=== PATIENT | female | born 1980 | race Caucasian/White ===

== ENCOUNTER → 2017-09-10 | Outpatient (CLI) | payer OTHER, MEDICAID ==
--- NOTE | 2017-09-10 13:28 | Diagnostic Imaging Report ---
INDICATION: Survey. TECHNIQUE: Multiple real-time grayscale images were obtained over the gravid uterus. COMPARISON: None. FINDINGS: Jones gestation is in transverse position with the placenta posterior and no abruption or previa. On images submitted, the head appears to be to the maternal left. Amniotic fluid volume appeared normal. No pathological finding at the anatomical survey. The measurements correlate with an age 21 weeks 1 day. IMPRESSION: Transverse-positioned jones viable IUP measuring 21 weeks 1 day with normal anatomical survey. Biometrical measurements are as follows: Biparietal 4.88 cm, age 20 weeks 6 days. Head circumference 18.16 cm, age 20 weeks 4 days. Abdominal circumference 16.12 cm, age 21 weeks 2 days. Femur length 3.57 cm, age 21 weeks 3 days. Sonographic estimate age: 21 weeks 1 days. Sonographic estimated date of delivery: 01/20/18. Estimated Weight: 404 gm (+/- 59 gm). LMP percentile: 84%. heart rate: 143 beats per minute. number: 1 of 1. Dictated by: Dictated on workstation # [id number]
== END ==
LOC: RAD 09:36
PROVIDERS: ATTEND Obstetrics & Gynecology
DX: Z36.89 Encounter for other specified antenatal screening (principal); Z3A.21 21 weeks gestation of pregnancy
CPT/HCPCS: 76805

== ENCOUNTER 2018-01-23 06:00 | Inpatient (IN) | payer OTHER, MEDICAID ==
[2018-01-23] VITALS (34 sets, daily range): BP systolic 87–180; BP diastolic 41–94
[~2018-01-23] VITALS: Ht 162.6 cm; Wt 99.3 kg
[2018-01-23] MEDS ORDERED: LACTATED RINGERS 1,000 ML IV ONE (07:14)
[2018-01-23] MEDS: LACTATED RINGERS 1,000 ML IV SCH ×2 (07:30→15:41)
[2018-01-23 08:04] LABS: HEMOGLOBIN 10.7 G/DL (11.5-16.0); MEAN PLATELET VOLUME 10.8 FL (7.4-10.4); RED BLOOD COUNT 3.61 10^6/uL (4.35-5.85); RED CELL DISTRIBUTION WIDTH 13.9 % (10.0-14.5); WHITE BLOOD COUNT 9.2 10^3/uL (4.3-11.0)
[2018-01-23] MEDS ORDERED: SUFENTA 0.6MCG/ML BUPIVA 0.125 100 ML ONE (08:17)
[2018-01-23] MEDS ORDERED: diphenhydrAMINE 50 MG/ML INJ (BENADRYL) IV PRN (09:00)
[2018-01-23] MEDS ORDERED: NALOXONE 0.4 MG/ML 1 ML (NARCAN) VIAL IV PRN (09:00)
[2018-01-23] MEDS ORDERED: EPIDURAL (SUFENTA 0.6MCG/ML BUPIVA 0.125%) 100 ML BAG EPI PRN (09:00)
[2018-01-23] MEDS ORDERED: ONDANSETRON 4 MG/2 ML (SDV) Z0FRAN IV PRN (09:00)
[2018-01-23] MEDS ORDERED: OXYTOCIN/NORMAL SALINE 0 ML IV ONE (09:30)
[2018-01-23] MEDS: D5 LR IV SOLUTION 1,000 ML IV SCH ×2 (09:30→20:28)
--- NOTE | 2018-01-23 09:59 | History & Physical-OB ---
OB - Chief Complaint & HPI Date/Time Date of Admission: Date of Admission: Jan 23, 2018 at 6:38 am Date seen by a Provider: Jan 23, 2018 Time Seen by a Provider: 09:00 Chief Complaint/History OB-Reason for Admission/Chief: Induction of Labor Hx : 6 Hx Para: 4 Expected Date of Delivery: Jan 25, 2018 Gestational Age in Weeks: 39 Gestational Age in Days: 5 Indication for induction: other ( < 40 weeks) Admission Nurse Assessment Rev: Yes History of Labs A pos Antibody neg RI RPR NR HBsAg NR HIV NR GC neg GBS neg Allergies and Home Medications Allergies Coded Allergies: Adhesive (Verified Allergy, Unknown, 05/21/07) Promethazine (Verified Allergy, Unknown, 05/21/07) Patient Home Medication List Home Medication List Reviewed: Yes OB - History Hx of Present Care: Yes Ultrasounds: Normal mid trimester US Obstetrical Complications: None Medical Complications: None Patient Past Medical History N/A Social History/Family History Recent Infectious Disease Expo: No OB - Admission Exam Physical Exam HEENT: NCAT Heart: Rhythm Normal Lungs: Clear Abdomen: Gravid Extremities: Normal Reflexes: Normal Cervical Dilatation: 5cm Effacement: 75% Station: -3 Membranes: Intact Heart Rate: 130's Accelerations: Accelerations Present Decelerations: No Decelerations Short Term Variability: Present Jail Variability: Average (6-25) Contractions on Admission: 6-10 Minutes Apart Intensity: Mild Cuadra Scoring Tool (Modified) Dilation (cm): >5cm (3) Effacement (%): 51-79% (2) Descent/Station: -2 (1) Cervix Consistency: Soft (2) Cervix Position: Anterior (2) Add 1 point for: Each previous vaginal delivery (1) Cuadra Score: 12 Labs Laboratory Tests Test 01/23/18 07:50 Range/Units White Blood Count 9.2 4.3-11.0 10^3/uL Red Blood Count 3.61 L 4.35-5.85 10^6/uL Hemoglobin 10.7 L 11.5-16.0 G/DL Hematocrit 33 L 35-52 % Mean Corpuscular Volume 91 80-99 FL Mean Corpuscular Hemoglobin 30 25-34 PG Mean Corpuscular Hemoglobin Concent 33 32-36 G/DL Red Cell Distribution Width 13.9 10.0-14.5 % Platelet Count 202 130-400 10^3/uL Mean Platelet Volume 10.8 H 7.4-10.4 FL OB - Assessment/Plan/Diagnosis Assessment Assessment: induction of labor Admission Dx 37 yo @ 39.5 weeks Previous x 1 AMA Previous successful x 3 TOLAC GBS neg Admission Status: Inpatient Order (span 2 midnights) Reason for Inpatient Admission: 37 yo @ 39.5 weeks Previous x 1 AMA Previous successful x 3 TOLAC GBS neg Plan Plan: Induction Induction Method: MACIE TURNER DO Jan 23, 2018 9:59 am
[2018-01-23] MEDS ORDERED: FLU QUADRIvalent (5+ YOA) 2018-2019 (AFLURIA) 0.5 ML IM ONE (10:15)
[2018-01-23 10:29] LABS: BILIRUBIN,URINE NEGATIVE (NEGATIVE); CLARITY,URINE SLIGHTLY CLOUDY; COLOR,URINE BROWN; GLUCOSE, URINE (UA) NEGATIVE (NEGATIVE); KETONES,URINE NEGATIVE (NEGATIVE); LEUKOCYTE ESTERASE ,URINE 2+ (NEGATIVE); NITRITE,URINE NEGATIVE (NEGATIVE); PH,URINE 7 (5-9); PROTEIN,URINE 2+ (NEGATIVE); UROBILINOGEN,URINE NORMAL (NORMAL)
[2018-01-23 10:51] LABS: BACTERIA,URINE FEW /HPF; RBC,URINE TNTC /HPF; WBC,URINE 25-50 /HPF
[2018-01-23] MEDS ORDERED: fentaNYL INJECTION 100 MCG/2 ML AMP ONE ×2 (12:50→15:12)
[2018-01-23] MEDS ORDERED: LIDOCAINE PF 2% 5 ML (XYLOCAINE) VIAL ONE ×2 (12:50→16:15)
[2018-01-23] MEDS ORDERED: BUPIVACAINE 0.25% 30 ML (SENSORCAINE) VIAL ONE ×2 (12:50→16:15)
[2018-01-23] MEDS: CATHETER FLUSH 10 ML SYR IV SCH ×2 (14:08→21:47)
[2018-01-23] MEDS ORDERED: CITRIC ACID/SOB CIT (BICITRA) 30 ML UDC ONE (14:57)
[2018-01-23] MEDS ORDERED: FAMOTIDINE 20MG/2ML IV (PEPCID) ONE (14:57)
[2018-01-23] MEDS ORDERED: METOCLOPRAMIDE INJ 10 MG/2 ML (REGLAN) ONE (14:57)
[2018-01-23] MEDS ORDERED: SUCCINYLCHOLINE INJ 100 MG/5 ML SYR ONE (15:19)
[2018-01-23] MEDS ORDERED: proPOfol 200 MG/20 ML (DIPRIVAN) VIAL IV ONE (15:19)
[2018-01-23] MEDS ORDERED: PHENYLEPHRINE 100 MCG/ML 10 ML (ANESTHESIA) SYR ONE ×2 (15:19→16:03)
[2018-01-23] MEDS ORDERED: ONDANSETRON 4 MG/2 ML (SDV) Z0FRAN ONE (15:19)
[2018-01-23] MEDS ORDERED: METHYLERGONOVINE 0.2 MG/ML (METHERGINE) AMP ONE (15:20)
[2018-01-23] MEDS ORDERED: OXYTOCIN/NORMAL SALINE 1,000 ML IV ONE (15:22)
[2018-01-23] MEDS ORDERED: ceFAZolin 1,000 MG/10 ML (ANCEF) VIAL IV ONE (15:30)
[2018-01-23] MEDS ORDERED: KETOROLAC 30 MG/ML VIAL ONE (15:49)
[2018-01-23] MEDS ORDERED: MEPERIDINE (DEMEROL) INJ 50 MG/ML IVP ONE (16:00)
[2018-01-23] MEDS ORDERED: fentaNYL INJECTION 100 MCG/2 ML AMP IVP ONE (16:00)
[2018-01-23] MEDS ORDERED: morphine INJ 10 MG/ML 1ML (SYR OR VIAL) IVP ONE (16:00)
[2018-01-23] MEDS ORDERED: ONDANSETRON 4 MG/2 ML (SDV) Z0FRAN IVP PRN ×2 (16:00→16:45)
--- NOTE | 2018-01-23 16:01 | Diagnostic Imaging Report ---
INDICATION: Postop abdomen. COMPARISON: None FINDINGS: Single supine radiographic view of the abdomen was obtained. There is radiopaque tubing projecting over the left upper abdominal quadrant which may be on the basis of indwelling gastric tube. Surgical clips are also noted within the right upper abdominal quadrant. No other unexpected radiopaque foreign bodies are seen. A few scattered loops of air distended small bowel are noted. IMPRESSION: 1. No unexpected radiopaque foreign bodies in this postsurgical patient. Dictated by: Dictated on workstation # [id number]
[2018-01-23] MEDS ORDERED: SEVOFLURANE (ULTANE) 15 ML INHAL SOLN ONE (16:05)
--- NOTE | 2018-01-23 16:43 | Discharge Inst-Women's Service ---
Discharge Inst-Women's Serv Depart Medication/Instructions New, Converted or Re-Newed RX: RX on Chart Final Diagnosis POD 2 RLTCS Acute blood loss anemia Consults/Follow Up Additional Follow Up: Yes Orders/Referrals Dr. Sagastume in 7-10 days and in 6 weeks Activity Activity: Activity as Tolerated Driving Instructions: No Driving for 1 Week NO SMOKING: NO SMOKING Nothing Inside Vagina: No Douching, No [place], No Tampons Diet Discharge Diet: No Restrictions Symptoms to Report to : Bleeding Excessive, Pain Increased, Fever Over 101 Degrees F, Vaginal Bleeding Increase, Questions/Concerns For Any Problems or Questions: Contact Your Physician Skin/Wound Care Infection Signs and Symptoms: Increased Redness, Foul Odor of Wound, Increased Drainage, Skin Itchy or Has a Rash, Increased Swelling, Temperature Above 101 F Operative Area Clean and Dry: Keep Incision Clean/Dry Stitches/[place]/Dermabond: Dermabond, Care of Stitches Bathing Instructions: MACIE Priest DO Jan 23, 2018 4:42 pm
[2018-01-23] MEDS ORDERED: HYDROmorphone 2 MG/ML VIAL (DILAUDID) IV PRN (16:45)
[2018-01-23] MEDS ORDERED: TETANUS,DIPTH,PERTUSS P/F (BOOSTRIX) 0.5 ML VIAL IM SCH (16:45)
[2018-01-23] MEDS ORDERED: ACHD5005 PO (16:45)
[2018-01-23] MEDS ORDERED: MEASLES,MUMPS,RUBELLA 1 EA INJ SC SCH (16:45)
[2018-01-23] MEDS ORDERED: IBUP-844 PO (16:45)
[2018-01-23] MEDS ORDERED: DOCU100C37 PO (16:46)
[2018-01-23] MEDS: OXYTOCIN/NORMAL SALINE 500 ML IV SCH ×2 (17:00→20:49)
[2018-01-23] MEDS: KETOROLAC 30 MG/ML VIAL IVP SCH (17:00)
[2018-01-23] MEDS: DOCUSATE SODIUM 100 MG (COLACE) CAP PO SCH (20:32)
[2018-01-23] MEDS: HYDROcodone/APAP 5 MG/325 MG (LORTAB) TAB PO PRN (20:34)
--- NOTE | 2018-01-23 21:36 | OPERATIVE REPORT ---
DATE OF SERVICE: PREOPERATIVE DIAGNOSES: 1. A 37-year-old female at 39 weeks gestation. 2. Trial of labor after . 3. intolerance of second stage labor. POSTOPERATIVE DIAGNOSES: 1. A 37-year-old female at 39 weeks gestation. 2. Trial of labor after . 3. intolerance of second stage labor. 4. Suspected large placental abruption. PROCEDURE: Repeat low transverse section. SURGEON: Roland Hagen DO ANESTHESIA: General endotracheal. ESTIMATED BLOOD LOSS: 800 mL. URINE OUTPUT: 1700 mL of lactated Ringer's solution. URINE OUTPUT 10 mL clear at the end the procedure that was slightly pink tinged. FINDINGS: A live female infant with Apgars of 2, 5 and 6 weighing 8 pounds 8 ounces. Grossly normal appearing uterus. No evidence of uterine dehiscence or rupture. Grossly normal appearing bilateral fallopian tubes and ovaries and anterior uterine placenta, which is noted to have approximately 40% to 50% of its surface with a large blood clot noted at the time of uterine incision. SPECIMEN SENT: Placenta. INDICATIONS FOR PROCEDURE: This 37-year-old female was brought in this morning for induction of labor at 39 weeks and 5 days. Her had been uncomplicated with the exception of advanced maternal age as well as the history of vaginal after section; however, she had undergone this three times prior successfully. Her first delivery was a section that was emergent. At her admission, she was very favorable. Her cervix was 5 cm dilated, she was 70% effaced and -2 station. Artificial rupture of membranes was performed with light meconium stained fluid noted and Pitocin augmentation was administered at a very conservative rate. The patient progressed and received an epidural for pain management. She progressed all the way to complete, at which point there began to be, of note, some deep variable decelerations, at which point, the nurse contacted me for evaluation. I came to evaluate the patient and the patient was found to be complete and 0 to +1 station. Due to her prior vaginal , an attempt was made to bring the 's vertex down and expedite delivery due to intolerance of labor and heart tones in the 60s to 70s. At that point with the next maternal push, I did place a Kiwi vacuum extractor at the midsagittal plane and in one attempt attempted with gentle downward traction to facilitate delivery rapidly; however, this was not occurring and the vacuum did pop-off. Therefore, I called for an emergency category 1 . The patient was urgently taken to the operating room as I discussed the indication and a suspicion for a potential abruption was discussed with the patient was noted to be bleeding. At that point, a Cruz catheter was placed in transit as well. She was taken to the operating room. The urgency of the matter did not allow for preoperative count and general anesthesia was administered due to the urgency of the encounter. OPERATIVE REPORT IN DETAIL: Once in the operating room, the patient was placed in supine position with leftward tilt, prepped and draped in normal sterile fashion. Once Anesthesia notified me that it is adequate and she is intubated, I made an incision to the previously existing scar using a knife and carried down to underlying fascia using the knife. I then extended the fascial incision using blunt traction. The rectus muscles were down the midline using blunt traction, which exposed the peritoneum, which I extended using blunt traction. I then placed the Dov ring retractor in the peritoneal incision, which offered excellent lateral sidewall retraction. I made an incision through the lower uterine segment, which was found to be distended. I dissected the vesicouterine peritoneum off the lower uterine segment using blunt traction creating a bladder flap. I then proceeded with by my myotomy until membranes were visualized. At the encounter of the membranes, there was a large blood clot that expelled through the uterine incision. I then extended the uterine incision using blunt traction laterally. The infant was found in the vertex presentation. I elevated the 's head up through the incision where the head was delivered. There was a nuchal cord reduced x1. Anterior and posterior shoulders were delivered. was then brought into the operative field with the cord was doubly clamped and cut and infant was handed off to the waiting nurses that were in attendance and pediatricians were en route. Cord blood was collected and cord gas was collected. Three-vessel cord was intact. Placenta was allowed to deliver spontaneously thereafter. There appeared to be 40% to 50% of the placental separation noted. The uterus was exteriorized and cleared of all endometrial clots and debris. I then proceeded with closing the uterine incision using 0 Vicryl suture in a running locked fashion. A second layer of imbricating 0 Monocryl was placed. Excellent hemostasis was noted after doing this. I then placed the uterus back in the pelvis, copiously irrigated the pelvis with normal saline. Once again, there was active bleeding noted from any of my dissection planes. I then placed Interceed antiadhesive over my low transverse incision to prevent postoperative adhesion formation. The peritoneum was then reapproximated using 3-0 Vicryl suture in running fashion. Rectus muscle was reapproximated using 3-0 Vicryl suture in interrupted fashion. The fascia was reapproximated using 0 Vicryl suture in running fashion. Subcutaneous tissue was reapproximated using 3-0 plain interrupted subcutaneous stitch and the skin was reapproximated using 4-0 Monocryl in a running subcuticular. Dermabond was applied to incision, sterile dressings with adhesive white tape. The patient tolerated the procedure well and was taken to the recovery area in stable condition. Lap and sponge count was not performed at the prior of the procedure, so was not performed after. A flat plate KUB was performed and there was no evidence of retained instrumentation. Two grams of Ancef were given intraoperatively for infection prophylaxis. Job ID: [id number] DocumentID: [id number] Dictated Date: 01/23/2018 17:01:09 Ticket Clerk Date: 01/23/2018 21:36:15 Dictated By: ROLAND HAGEN DO
[2018-01-23] MEDS ORDERED: CATHETER FLUSH 10 ML SYR IV SCH (22:00)
[2018-01-24 00:26] VITALS: BP 135/83
[2018-01-24] MEDS: HYDROcodone/APAP 5 MG/325 MG (LORTAB) TAB PO PRN ×4 (00:26→18:24)
[2018-01-24] MEDS: KETOROLAC 30 MG/ML VIAL IVP SCH ×3 (00:26→20:30)
[2018-01-24] MEDS: D5 LR IV SOLUTION 1,000 ML IV SCH (00:56)
[2018-01-24 03:35] VITALS: BP 116/6
[2018-01-24 06:04] LABS: BASOPHILS % (AUTO) 0 % (0-10); EOSINOPHILS % (AUTO) 0 % (0-10); HEMATOCRIT 25 % (35-52); HEMOGLOBIN 8.3 G/DL (11.5-16.0); LYMPHOCYTES # (AUTO) 1.5 X 10^3 (1.0-4.0); LYMPHOCYTES % (AUTO) 16 % (12-44); MEAN CORPUSCULAR HEMOGLOBIN 30 PG (25-34); MEAN CORPUSCULAR HGB CONC 33 G/DL (32-36); MEAN CORPUSCULAR VOLUME 91 FL (80-99); MEAN PLATELET VOLUME 10.8 FL (7.4-10.4); MONOCYTES # (AUTO) 0.8 X 10^3 (0.0-1.0); MONOCYTES % (AUTO) 8 % (0-12); NEUTROPHILS # (AUTO) 7.5 X 10^3 (1.8-7.8); NEUTROPHILS % (AUTO) 76 % (42-75); PLATELET COUNT 162 10^3/uL (130-400); RED BLOOD COUNT 2.76 10^6/uL (4.35-5.85); RED CELL DISTRIBUTION WIDTH 13.7 % (10.0-14.5); WHITE BLOOD COUNT 9.8 10^3/uL (4.3-11.0)
[2018-01-24] MEDS ORDERED: IBUPROFEN 600 MG (MOTRIN) TAB PO ONE ×2 (06:31→12:19)
[2018-01-24] MEDS: CATHETER FLUSH 10 ML SYR IV SCH (06:33)
[2018-01-24] MEDS: IBUPROFEN 600 MG (MOTRIN) TAB PO SCH ×4 (06:33→23:22)
[2018-01-24] MEDS: DOCUSATE SODIUM 100 MG (COLACE) CAP PO SCH ×2 (07:26→21:01)
--- NOTE | 2018-01-24 09:03 | Postpartum Progress Note ---
Note Note Day # 1 Subjective: Patient is without complaints. Ambulating, voiding. Tolerating a regular diet without nausea or vomiting. Normal lochia. Pain is well controlled with oral pain medications. Objective: Vital Sign - Last 24 Hours 01/23/18 01/23/18 01/23/18 01/23/18 09:20 09:35 09:50 10:05 Pulse 98 98 86 92 Resp 20 20 20 20 B/P (MAP) 97/41 (59) 97/41 (59) 130/82 (98) 126/80 (95) Pulse Ox 100 100 100 100 O2 Delivery Room Air Room Air Room Air Room Air 01/23/18 01/23/18 01/23/18 01/23/18 10:20 10:35 10:50 11:05 Pulse 90 98 85 88 Resp 20 20 20 20 B/P (MAP) 130/78 (95) 120/72 (88) 125/74 (91) 124/77 (93) Pulse Ox 100 100 100 100 O2 Delivery Room Air Room Air Room Air Room Air 01/23/18 01/23/18 01/23/18 01/23/18 11:20 11:35 11:50 12:05 Pulse 86 90 94 90 Resp 20 18 18 18 B/P (MAP) 141/78 (99) 134/84 (101) 131/88 (102) 141/82 (101) Pulse Ox 100 100 100 100 O2 Delivery Room Air Room Air Room Air Room Air 01/23/18 01/23/18 01/23/18 01/23/18 12:30 12:45 13:00 13:15 Temp 96.8 Pulse 85 90 90 87 Resp 18 18 18 18 B/P (MAP) 144/81 (102) 180/89 (119) 180/89 (119) 133/83 (100) Pulse Ox 100 100 100 98 O2 Delivery Room Air Room Air Room Air Room Air 01/23/18 01/23/18 01/23/18 01/23/18 13:30 13:45 14:00 14:15 Pulse 91 80 77 74 Resp 18 18 18 18 B/P (MAP) 131/72 (91) 126/76 (93) 124/74 (91) 123/80 (94) Pulse Ox 98 98 99 99 O2 Delivery Room Air Room Air Room Air Room Air 01/23/18 01/23/1801/23/18 01/23/18 14:30 14:45 14:51 17:05 Temp 97.4 Pulse 82 89 101 Resp 18 18 20 B/P (MAP) 129/82 (98) 87/49 (62) Pulse Ox 99 100 100 O2 Delivery Room Air Room Air Non Rebreather Room Air 01/23/18 01/23/18 01/24/18 01/24/18 17:08 20:34 00:26 03:35 Temp 99.1 98.8 98.8 Pulse 111 94 100 Resp 20 18 18 B/P (MAP) 97/65 (76) 128/77 (94) 135/83 (100) 116/6 (42) Pulse Ox 100 96 97 O2 Delivery Room Air Room Air Room Air Room Air Intake and Output 01/23/18 01/23/18 01/24/18 15:00 23:00 07:00 Intake Total 1740 ml 1400 ml Output Total 310 ml 650 ml Balance 1430 ml 750 ml Physical Exam: General - Alert and oriented, no apparent distress Abdomen - Soft, appropriately tender to palpation, non-distended, fundus firm at umbilicus Extremities - no edema, negative Connie's bilaterally Incision- c/d/i Assessment: POD 1 Emergency RLTCS Acute blood loss anemia Placental abruption Plan: Routine care. Encourage breast feeding. Encourage ambulation. Ferrous sulfate supplementation. Plan for discharge tomorrow/or Saturday Vitals - Labs Vital Signs - I&O Vital Signs Date Time Temp Pulse Resp B/P (MAP) Pulse Ox O2 Delivery O2 Flow Rate FiO2 01/24/18 03:35 98.8 100 18 116/6 (42) 97 Room Air 01/24/18 00:26 98.8 94 18 135/83 (100) 96 Room Air 01/23/18 20:34 99.1 111 20 128/77 (94) 100 Room Air 01/23/18 17:08 97/65 (76) Room Air 01/23/18 17:05 97.4 101 20 87/49 (62) 100 Room Air 01/23/18 14:51 Non Rebreather 01/23/18 14:45 89 18 100 Room Air 01/23/18 14:30 82 18 129/82 (98) 99 Room Air 01/23/18 14:15 74 18 123/80 (94) 99 Room Air 01/23/18 14:00 77 18 124/74 (91) 99 Room Air 01/23/18 13:45 80 18 126/76 (93) 98 Room Air 01/23/18 13:30 91 18 131/72 (91) 98 Room Air 01/23/18 13:15 87 18 133/83 (100) 98 Room Air 01/23/18 13:00 90 18 180/89 (119) 100 Room Air 01/23/18 12:45 90 18 180/89 (119) 100 Room Air 01/23/18 12:30 96.8 85 18 144/81 (102) 100 Room Air 01/23/18 12:05 90 18 141/82 (101) 100 Room Air 01/23/18 11:50 94 18 131/88 (102) 100 Room Air 01/23/18 11:35 90 18 134/84 (101) 100 Room Air 01/23/18 11:20 86 20 141/78 (99) 100 Room Air 01/23/18 11:05 88 20 124/77 (93) 100 Room Air 01/23/18 10:50 85 20 125/74 (91) 100 Room Air 01/23/18 10:35 98 20 120/72 (88) 100 Room Air 01/23/18 10:20 90 20 130/78 (95) 100 Room Air 01/23/18 10:05 92 20 126/80 (95) 100 Room Air 01/23/18 09:50 86 20 130/82 (98) 100 Room Air 01/23/18 09:35 98 20 97/41 (59) 100 Room Air 01/23/18 09:20 98 20 97/41 (59) 100 Room Air I & O 01/24/18 07:00 Intake Total 3140 ml Output Total 960 ml Balance 2180 ml Labs Laboratory Tests 01/23/18 09:30: Urine Color BROWNH, Urine Clarity SLIGHTLY CLOUDY, Urine pH 7, Urine Specific [place] 1.010L, Urine Protein 2+H, Urine Glucose (UA) NEGATIVE, Urine Ketones NEGATIVE, Urine Nitrite NEGATIVE, Urine Bilirubin NEGATIVE, Urine Urobilinogen NORMAL, Urine Leukocyte Esterase 2+H, Urine RBC (Auto) 5+H, Urine RBC TNTCH, Urine WBC 25-50H, Urine Squamous Epithelial Cells 10-25H, Urine Renal Epithelial Cells NONE, Urine Crystals NONE, Urine Bacteria FEWH, Urine Casts NONE, Urine Mucus NEGATIVE, Urine Culture Indicated YES 01/24/18 05:50: White Blood Count 9.8, Red Blood Count 2.76L, Hemoglobin 8.3#L, Hematocrit 25L, Mean Corpuscular Volume 91, Mean Corpuscular Hemoglobin 30, Mean Corpuscular Hemoglobin Concent 33, Red Cell Distribution Width 13.7, Platelet Count 162, Mean Platelet Volume 10.8H, Neutrophils (%) (Auto) 76H, Lymphocytes (%) (Auto) 16, Monocytes (%) (Auto) 8, Eosinophils (%) (Auto) 0, Basophils (%) (Auto) 0, Neutrophils # (Auto) 7.5, Lymphocytes # (Auto) 1.5, Monocytes # (Auto) 0.8, Eosinophils # (Auto) 0.0, Basophils # (Auto) 0.0 MACIE HAGEN DO Jan 24, 2018 09:03
[2018-01-24 11:08] VITALS: BP 136/67
--- NOTE | 2018-01-24 14:11 | Anesthesia-General Post-Op ---
General Patient Condition Mental Status/LOC: Same as Preop Cardiovascular: Satisfactory Nausea/Vomiting: Absent Respiratory: Satisfactory Pain: Controlled Complications: Absent Post Op Complications Complications None Follow Up Care/Instructions Patient Instructions None needed. Anesthesia/Patient Condition Patient Condition Patient is doing well, no complaints, stable vital signs, no apparent adverse anesthesia problems. No complications reported per nursing. BRINDA ONEILL CRNA Jan 24, 2018 14:11
--- NOTE | 2018-01-24 14:12 | Anesthesia-Regional Post-Op ---
Regional Patient Condition Mental Status: Alert, Oriented x3 Circulation: Same as Pre-Op Headache: Absent Sensation: Full Recovery Motor Block: Absent Post Op Complications Complications None Follow Up Care/Instructions Patient Instructions None needed. Anesthesia/Patient Condition Patient is doing well, no complaints, stable vital signs, no apparent adverse anesthesia problems. No complications reported per nursing. BRINDA ONEILL CRNA Jan 24, 2018 14:12
[2018-01-24 16:00] VITALS: BP 140/83
[2018-01-24 21:00] VITALS: BP 133/77
[2018-01-25 02:35] VITALS: BP 139/82
[2018-01-25] MEDS: HYDROcodone/APAP 5 MG/325 MG (LORTAB) TAB PO PRN ×2 (05:54→12:44)
[2018-01-25] MEDS: IBUPROFEN 600 MG (MOTRIN) TAB PO SCH ×2 (05:54→12:44)
--- NOTE | 2018-01-25 09:18 | Postpartum Progress Note ---
Note Note Day # 2 Subjective: Patient is without complaints. Ambulating, voiding. Tolerating a regular diet without nausea or vomiting. Normal lochia. Pain is well controlled with oral pain medications. Objective: Vital Signs 01/25/18 02:35 Temp 98.1 Pulse 101 Resp 18 B/P (MAP) 139/82 (101) Pulse Ox 98 O2 Delivery Room Air Physical Exam: General - Alert and oriented, no apparent distress Abdomen - Soft, appropriately tender to palpation, non-distended, fundus firm at umbilicus Extremities - no edema, negative Connie's bilaterally Incision- c/d/i Assessment: POD 1 Emergency RLTCS Acute blood loss anemia Placental abruption Plan: Routine care. Encourage breast feeding. Encourage ambulation. Ferrous sulfate supplementation. Plan for discharge today Vitals - Labs Vital Signs - I&O Vital Signs Date Time Temp Pulse Resp B/P (MAP) Pulse Ox O2 Delivery O2 Flow Rate FiO2 01/25/18 02:35 98.1 101 18 139/82 (101) 98 Room Air 01/24/18 21:00 98.7 105 20 133/77 (95) 97 Room Air 01/24/18 16:00 97.0 117 20 140/83 (102) 97 Room Air 01/24/18 11:08 98.9 100 18 136/67 (90) 97 Room Air I & O 01/25/18 07:00 Intake Total 800 ml Output Total 1200 ml Balance -400 ml Labs Microbiology 01/23/18 Urine Culture - Final, Complete See Comments MACIE HAGEN DO Jan 25, 2018 09:18
[2018-01-25] MEDS: DOCUSATE SODIUM 100 MG (COLACE) CAP PO SCH (09:57)
[2018-01-25 09:59] VITALS: BP 135/84
== END 2018-01-25 14:55 | disposition home or self-care (01) | DRG 786 ==
LOC: LDRP 06:38
PROVIDERS: ADMIT Obstetrics & Gynecology; ATTEND Obstetrics & Gynecology
PROC: 10907ZC Drainage of Amniotic Fluid, Therapeutic from Products of Conception, Via Natural or Artificial Opening (ICD-10-PCS; 2018-01-23)
PROC: 10D00Z1 Extraction of Products of Conception, Low, Open Approach (ICD-10-PCS; principal; 2018-01-23 15:00)
DX: O34.211 Maternal care for low transverse scar from previous cesarean delivery (principal); O76 Abnormality in fetal heart rate and rhythm complicating labor and delivery; O45.93 Premature separation of placenta, unspecified, third trimester; O90.81 Anemia of the puerperium; D62 Acute posthemorrhagic anemia; O66.40 Failed trial of labor, unspecified; O22.8X3 Other venous complications in pregnancy, third trimester; O69.81X0 Labor and delivery complicated by cord around neck, without compression, not applicable or unspecified; O77.0 Labor and delivery complicated by meconium in amniotic fluid; Z3A.39 39 weeks gestation of pregnancy; Z37.0 Single live birth
CPT/HCPCS: 36415; 74018; 81000; 85025; 85027; 86850; 86900; 86901; 87088; 88307; 94664

== ENCOUNTER → 2020-03-29 | Outpatient (CLI) | payer MEDICAID, OTHER ==
[~2020-03-29] MED LIST: ACHD5005 PO; DOCU100C37 PO; IBUP-844 PO
--- NOTE | 2020-03-29 11:43 | Diagnostic Imaging Report ---
INDICATION: Routine screening. COMPARISON: No prior mammograms are available for comparison. This is a baseline study. FINDINGS: 2D and 3D bilateral screening mammography was performed with CAD. FINDINGS: Scattered fibroglandular densities are identified bilaterally. No mass or malignant appearing microcalcifications are seen. The axillae are unremarkable. IMPRESSION: No mammographic features suspicious for malignancy are identified. ACR BI-RADS Category 1: Negative. Result letter will be mailed to the patient. Note: At least 10% of breast cancer is not imaged by mammography. Dictated by: Dictated on workstation # [id number]
--- NOTE | 2020-03-29 11:47 | Diagnostic Imaging Report ---
PROCEDURE: Pelvic comp/transvaginal sonogram. TECHNIQUE: Complete transabdominal and transvaginal pelvic ultrasound was performed. In addition, limited pelvic Doppler was performed. INDICATION: Heavy bleeding. The uterus is anteverted measuring 9.4 x 5.6 x 6.3 cm. Endometrium is 12 mm in thickness. There is a fibroid in the anterior fundus to the left measuring approximately 3 cm in size. Slightly echogenic lesion in the posterior uterus measures 1.3 x 1.4 cm, likely fibroid. Right ovary measures 3.5 x 2.4 x 2.4 cm and contains a partially collapsed cyst measuring 15 mm. There are follicles in the right ovary. There is blood flow to the right ovary. Left ovary was not visualized. No free fluid is seen. IMPRESSION: 1. Fibroid uterus. 2. Collapsed right ovarian cyst. The study is otherwise unremarkable. Dictated by: Dictated on workstation # [id number]
== END ==
LOC: RAD 10:01
PROVIDERS: ATTEND Obstetrics & Gynecology
DX: Z12.31 Encounter for screening mammogram for malignant neoplasm of breast (principal); N92.0 Excessive and frequent menstruation with regular cycle; N83.291 Other ovarian cyst, right side; D25.9 Leiomyoma of uterus, unspecified
CPT/HCPCS: 76830; 76856; 77063; 77067

== ENCOUNTER → 2020-09-28 | Outpatient (CLI) | payer OTHER ==
[~2020-09-28] MED LIST changes: +KETO10TA PO; +LEVO100T7 PO; +NITR-65 PO; +PHEN-640 PO; +TMSL.4C PO; +bcp PO
--- NOTE | 2020-09-28 16:07 | Diagnostic Imaging Report ---
INDICATION: Nephrolithiasis. EXAMINATION: KUB at 3:57 p.m. FINDINGS: There is a 4 mm calcification projecting over the right renal pelvis. There is a large amount of stool in the ascending colon. Bowel gas pattern is normal. Gallbladder is surgically absent. IMPRESSION: Right nephrolithiasis. Dictated by: Dictated on workstation # [id number]
== END ==
LOC: RAD
PROVIDERS: ATTEND Urology
DX: N20.0 Calculus of kidney (principal)
CPT/HCPCS: 74018

== ENCOUNTER 2020-09-29 10:03 | Outpatient (CLI) | payer OTHER ==
[~2020-09-29] VITALS: Ht 162.6 cm; Wt 97.3 kg
[~2020-09-29 10:03] MED LIST changes: -KETO10TA PO; -LEVO100T7 PO; -NITR-65 PO; -PHEN-640 PO; -TMSL.4C PO; -bcp PO
[2020-09-29] MEDS ORDERED: LEVO100T7 PO ×2 (10:40)
[2020-09-29] MEDS ORDERED: bcp PO ×2 (10:40)
[2020-09-30] MEDS ORDERED: NITR-65 PO ×2 (08:23)
[2020-09-30] MEDS ORDERED: PHEN-640 PO ×2 (08:23)
[2020-09-30] MEDS ORDERED: KETO10TA PO ×2 (08:23)
[2020-09-30] MEDS ORDERED: TMSL.4C PO ×2 (08:23)
== END 2020-09-29 10:43 | disposition home or self-care (01) ==
LOC: PREOP 10:03
PROVIDERS: ATTEND Urology
DX: Z01.818 Encounter for other preprocedural examination (principal)

== ENCOUNTER 2020-09-30 06:20 | Day surgery (SDC) | payer OTHER ==
[2020-09-30] VITALS (11 sets, daily range): BP systolic 104–150; BP diastolic 65–91
[~2020-09-30] VITALS: Ht 162.6 cm; Wt 97.3 kg
[~2020-09-30 06:20] MED LIST changes: +LEVO100T7 PO; +bcp PO
[2020-09-30] MEDS ORDERED: LACTATED RINGERS 1,000 ML IV PRN (06:45)
[2020-09-30] MEDS ORDERED: cefTRIAXone 1,000 MG in WATER (STERILE) FOR INJECTION 10 ML IV ONE (06:45)
[2020-09-30] MEDS ORDERED: fentaNYL INJ 100 MCG/2 ML AMP ONE ×2 (06:53→07:06)
[2020-09-30] MEDS ORDERED: ONDANSETRON 4 MG/2 ML (SDV) Z0FRAN ONE (07:06)
[2020-09-30] MEDS ORDERED: LIDOCAINE PF 2% 5 ML (XYLOCAINE) VIAL ONE (07:06)
[2020-09-30] MEDS ORDERED: MIDAZOLAM 2 MG/2 ML (VERSED) VIAL ONE (07:06)
[2020-09-30] MEDS ORDERED: SUCCINYLCHOLINE INJ 100 MG/5 ML SYR/VIAL ONE (07:06)
[2020-09-30] MEDS ORDERED: proPOfol 200 MG/20 ML (DIPRIVAN) VIAL IV ONE (07:06)
[2020-09-30] MEDS ORDERED: fentaNYL INJ 100 MCG/2 ML AMP IV ONE (07:15)
--- NOTE | 2020-09-30 07:23 | Progress Note-Pre Operative ---
Pre-Operative Progress Note H&P Reviewed The H&P was reviewed, patient examined and no changes noted. Date Seen by Provider: Sep 30, 2020 Time Seen by Provider: 07:23 Date H&P Reviewed: Sep 30, 2020 Time H&P Reviewed: 07:23 Pre-Operative Diagnosis: RT PROXIMAL URETERAL STONE CAROLYNN REBOLLAR MD Sep 30, 2020 07:23
--- NOTE | 2020-09-30 07:26 | Diagnostic Imaging Report ---
INDICATION: Urinary tract calculus Supine image of the abdomen is obtained with comparison made study of 09/28/2020. There is moderate to large amount of stool involving the right colon. This does limit evaluation however there is an approximately 0.5 cm calculus projecting over the right abdomen at the L3-L4 level which may reside within the proximal right ureter. No other pathologic abdominal calcification is seen. IMPRESSION: Proximal 0.5 cm calculus projects over the right abdomen and may reside within the proximal right ureter. Dictated by: Dictated on workstation # [id number]
--- NOTE | 2020-09-30 07:27 | Progress Note-Post Operative ---
Post-Operative Progess Note Surgeon (s)/Dumper Bailer Operator (s) Surgeon CAROLYNN REBOLLAR MD Dumper Bailer Operator: NONE Pre-Operative Diagnosis RT PROXIMAL URETERAL STONE Post-Operative Diagnosis SAME Procedure & Operative Findings Date of Procedure 09/30/20 Procedure Performed/Findings CYSTOSCOPY, RT URETERAL STONE MANIPULATION AND INSERTION OF STENT Anesthesia Type GENERAL Estimated Blood Loss Estimated blood loss (mL): NONE Specimens/Packing Specimens Removed NONE Packing: NONE CAROLYNN REBOLLAR MD Sep 30, 2020 07:26
[2020-09-30] MEDS ORDERED: SEVOFLURANE (ULTANE) 15 ML INHAL SOLN ONE (07:49)
--- NOTE | 2020-09-30 07:56 | Discharge Inst-Urology ---
Discharge Inst-Urology Reconcile Patient Problems Problems Reviewed?: Yes Final Diagnosis RT PROXIMAL URETERAL STONE Patient Instructions/Follow Up Plan/Assessment/Instructions Please make appointment to been seen in office Tuesday 10/10, KUB prior to it KUB on way home. Increase oral fluids for 48 hours and then as needed. Diet and Activity as tolerated. If questions or concerns contact your physician Or seek help at emergency department. CAROLYNN REBOLLAR MD Sep 30, 2020 07:56
--- NOTE | 2020-09-30 08:03 | Anesthesia-General Post-Op ---
General Patient Condition Mental Status/LOC: Same as Preop Cardiovascular: Satisfactory Nausea/Vomiting: Absent Respiratory: Satisfactory Pain: Controlled Complications: Absent Post Op Complications Complications None Follow Up Care/Instructions Patient Instructions None needed. Anesthesia/Patient Condition Patient Condition Patient is doing well, no complaints, stable vital signs, no apparent adverse anesthesia problems. No complications reported per nursing. BRINDA ONEILL CRNA Sep 30, 2020 08:03
[2020-09-30] MEDS ORDERED: morphine INJ 10 MG/ML 1ML (SYR OR VIAL) IVP ONE (08:15)
[2020-09-30] MEDS ORDERED: ONDANSETRON 4 MG/2 ML (SDV) Z0FRAN IVP PRN (08:15)
[2020-09-30] MEDS ORDERED: MEPERIDINE (DEMEROL) INJ 50 MG/ML IVP ONE (08:15)
[2020-09-30] MEDS ORDERED: TMSL.4C PO ×2 (08:23)
[2020-09-30] MEDS ORDERED: NITR-65 PO ×2 (08:23)
[2020-09-30] MEDS ORDERED: PHEN-640 PO ×2 (08:23)
[2020-09-30] MEDS ORDERED: KETO10TA PO ×2 (08:23)
--- NOTE | 2020-09-30 08:27 | OPERATIVE REPORT ---
DATE OF SERVICE: 09/30/2020 PREOPERATIVE DIAGNOSIS: Right proximal ureteral stone. POSTOPERATIVE DIAGNOSIS: Right proximal ureteral stone. OPERATION PERFORMED: Cystoscopy, right ureteral stone manipulation and insertion of right double-J stent. SURGEON: Helio Rebollar MD ANESTHESIA: General. COMPLICATIONS: None. DESCRIPTION OF PROCEDURE: Under satisfactory general anesthesia, the patient in lithotomy position, genitalia were prepped and draped in the usual sterile fashion. Cystoscope was introduced under vision, observed was a 3+ cystocele. The bladder was essentially normal except for absent efflux on the right side. Using the foroblique lens, passed a 6-Czech ureteral catheter to the level of the stone. I manipulated it and pushed it back into the kidney. I removed the ureteral catheter. There was a lot of junk and bloody material and cloudy material coming out from the ureteral orifice. I went ahead and passed a 6-Czech [address] the way up to the right renal pelvis guided fluoroscopically, removed the guidewire, the stent was seen draining nicely proximally fluoroscopically and distally endoscopically and the stone was seen inside the curve of the proximal J of the stent. Bladder was evacuated and the cystoscope was removed. The patient tolerated the procedure and anesthesia well and was sent to recovery room in stable condition. PLAN: We will see the patient back in the office on Saturday, the . We will get a KUB and plan to do ESWL on the and possible removal of stent. Job ID: [id number] DocumentID: [id number] Dictated Date: 09/30/2020 08:01:30 [employer] Crane Operator Date: 09/30/2020 08:26:57 Dictated By: HELIO REBOLLAR MD
[2020-09-30] MEDS ORDERED: PHENAZOPYRIDINE 100 MG (PYRIDIUM) TABLET PO ONE (09:30)
== END 2020-09-30 10:15 | disposition home or self-care (01) ==
LOC: SDC 06:20
PROVIDERS: ATTEND Urology
DX: N20.1 Calculus of ureter (principal); K21.9 Gastro-esophageal reflux disease without esophagitis; F32.9 Major depressive disorder, single episode, unspecified; M79.7 Fibromyalgia; E03.9 Hypothyroidism, unspecified; Z79.1 Long term (current) use of non-steroidal anti-inflammatories (NSAID); Z79.899 Other long term (current) drug therapy; Z79.891 Long term (current) use of opiate analgesic; Z79.890 Hormone replacement therapy; Z87.891 Personal history of nicotine dependence
CPT/HCPCS: 52330; 52332; 74018; 76000; 84703; 87081; C2625

== ENCOUNTER 2020-10-04 05:47 | Outpatient (CLI) | payer OTHER ==
[~2020-10-04 05:47] MED LIST changes: +KETO10TA PO; +NITR-65 PO; +PHEN-640 PO; +TMSL.4C PO
[2020-10-11] MEDS ORDERED: FAMO20TA3 PO (07:42)
[2020-10-11] MEDS ORDERED: KETO10TA PO ×2 (07:42→08:50)
[2020-10-11] MEDS ORDERED: CETI10TA17 PO (07:42)
[2020-10-11] MEDS ORDERED: NITR-65 PO (08:50)
[2020-10-11] MEDS ORDERED: TMSL.4C PO (08:50)
== END 2020-10-10 15:10 | disposition home or self-care (01) ==
LOC: PREOP 05:47
PROVIDERS: ATTEND Urology
DX: Z01.818 Encounter for other preprocedural examination (principal)

== ENCOUNTER → 2020-10-10 | Outpatient (CLI) | payer OTHER ==
[~2020-10-10] MED LIST changes: +CETI10TA17 PO; +FAMO20TA3 PO
--- NOTE | 2020-10-10 13:53 | Diagnostic Imaging Report ---
INDICATION: Status post right-sided ESWL. COMPARISON: 09/30/2020 FINDINGS: Single frontal radiographic view of the abdomen was obtained and demonstrates interval placement of right-sided double-J ureteral stent. Patency of the stent cannot be assessed. Also again identified is a 7 mm calculus projecting over the inferior pole of the right renal shadow. No other unexpected extraosseous calcifications or radiopaque foreign bodies are seen. Small bowel loops are nondistended. There has been significant interval improvement in colonic stool burden. Small amount of residual colonic stool persists. There is no large collection of free intraperitoneal air. Osseous structures show no gross acute abnormalities. IMPRESSION: 1. Redemonstration of right renal calculus. 2. Interval placement of right-sided double-J ureteral stent. 3. Interval improved colonic stool burden. Dictated by: Dictated on workstation # [id number]
== END ==
LOC: RAD 13:10
PROVIDERS: ATTEND Urology
DX: N20.1 Calculus of ureter (principal); Z96.0 Presence of urogenital implants
CPT/HCPCS: 74018

== ENCOUNTER 2020-10-11 06:00 | Day surgery (SDC) | payer OTHER ==
[~2020-10-11] VITALS: Ht 162 cm; Wt 97.3 kg
[2020-10-11] VITALS (8 sets, daily range): BP systolic 118–138; BP diastolic 79–97
[~2020-10-11 06:00] MED LIST changes: -CETI10TA17 PO; -FAMO20TA3 PO
[2020-10-11] MEDS ORDERED: LACTATED RINGERS 1,000 ML IV PRN (06:15)
[2020-10-11] MEDS ORDERED: cefTRIAXone 1,000 MG in WATER (STERILE) FOR INJECTION 10 ML IV ONE (06:15)
[2020-10-11] MEDS ORDERED: MIDAZOLAM 2 MG/2 ML (VERSED) VIAL ONE (06:56)
[2020-10-11] MEDS ORDERED: proPOfol 200 MG/20 ML (DIPRIVAN) VIAL IV ONE (06:56)
[2020-10-11] MEDS ORDERED: fentaNYL INJ 100 MCG/2 ML AMP ONE (06:56)
[2020-10-11] MEDS ORDERED: LIDOCAINE PF 2% 5 ML (XYLOCAINE) VIAL ONE (06:56)
[2020-10-11] MEDS ORDERED: ONDANSETRON 4 MG/2 ML (SDV) Z0FRAN ONE (06:56)
--- NOTE | 2020-10-11 07:01 | Progress Note-Pre Operative ---
Pre-Operative Progress Note H&P Reviewed The H&P was reviewed, patient examined and no changes noted. Date Seen by Provider: Oct 11, 2020 Time Seen by Provider: 07:01 Date H&P Reviewed: Oct 11, 2020 Time H&P Reviewed: 07:01 Pre-Operative Diagnosis: RT RENAL STONE CAROLYNN REBOLLAR MD Oct 11, 2020 07:01
[2020-10-11] MEDS ORDERED: ROCURONIUM 10 MG/ML 5 ML SYRINGE IV ONE (07:04)
--- NOTE | 2020-10-11 07:08 | Progress Note-Post Operative ---
Post-Operative Progess Note Surgeon (s)/Field Marketing Lead (s) Surgeon CAROLYNN REBOLLAR MD Field Marketing Lead: NONE Pre-Operative Diagnosis RT RENAL STONE Post-Operative Diagnosis SAME Procedure & Operative Findings Date of Procedure 10/11/20 Procedure Performed/Findings RT ESWL Anesthesia Type GENERAL Estimated Blood Loss Estimated blood loss (mL): NONE Specimens/Packing Specimens Removed NONE Packing: NONE CAROLYNN REBOLLAR MD Oct 11, 2020 07:08
--- NOTE | 2020-10-11 07:09 | Discharge Inst-Urology ---
Discharge Inst-Urology Reconcile Patient Problems Problems Reviewed?: Yes Final Diagnosis RT RENAL STONE Patient Instructions/Follow Up Plan/Assessment/Instructions Please make appointment to been seen in office in 1 week, POSSIBLE CYSTO AND REMOVAL OF STENT (please let office know that) KUB prior to it KUB on way home Post ESWL instructions Increase oral fluids for 48 hours and then as needed. Diet and Activity as tolerated. If questions or concerns contact your physician Or seek help at emergency department. CAROLYNN REBOLLAR MD Oct 11, 2020 07:09
[2020-10-11] MEDS ORDERED: morphine INJ 10 MG/ML 1ML (SYR OR VIAL) IVP ONE (07:30)
[2020-10-11] MEDS ORDERED: ONDANSETRON 4 MG/2 ML (SDV) Z0FRAN IVP PRN (07:30)
--- NOTE | 2020-10-11 07:34 | Diagnostic Imaging Report ---
Indication: Nephrolithiasis Supine image of the abdomen is obtained with comparison made to study of 10/10/2020. There is stable overall appearance of 0.7 cm calculus in the lower pole right kidney. Right double-J nephroureteral stent is in stable position. Surgical clips are seen in the right upper quadrant likely related to cholecystectomy. Otherwise there is no evidence of bowel obstruction or other adverse change. IMPRESSION: Stable KUB with 0.7 cm stone projecting over the lower pole the right kidney. Dictated by: Dictated on workstation # [id number]
[2020-10-11] MEDS ORDERED: KETO10TA PO ×2 (07:42→08:50)
[2020-10-11] MEDS ORDERED: FAMO20TA3 PO (07:42)
[2020-10-11] MEDS ORDERED: CETI10TA17 PO (07:42)
[2020-10-11] MEDS ORDERED: FUROSEMIDE 40 MG/4 ML INJ (LASIX) ONE (08:28)
[2020-10-11] MEDS ORDERED: KETOROLAC 30 MG/ML VIAL ONE (08:28)
[2020-10-11] MEDS ORDERED: SEVOFLURANE (ULTANE) 15 ML INHAL SOLN ONE (08:32)
[2020-10-11] MEDS ORDERED: NITR-65 PO (08:50)
[2020-10-11] MEDS ORDERED: TMSL.4C PO (08:50)
--- NOTE | 2020-10-11 10:40 | Diagnostic Imaging Report ---
INDICATION: Stent placement, kidney stone COMPARISON: None FINDINGS: A single view of the abdomen demonstrates stent in the right renal collecting system. Calcifications are seen near the tip of the superior stent. IMPRESSION: Stent placement right renal collecting system. Dictated by: Dictated on workstation # [id number]
--- NOTE | 2020-10-11 12:40 | OPERATIVE REPORT ---
DATE OF SERVICE: 10/11/2020 PREOPERATIVE DIAGNOSIS: Right renal stone. POSTOPERATIVE DIAGNOSIS: Right renal stone. OPERATION PERFORMED: Right ESWL. SURGEON: Helio Rebollar MD ANESTHESIA: General. COMPLICATIONS: None: DESCRIPTION OF THE PROCEDURE: Under satisfactory general anesthesia, the patient laid supine on the ESWL table, the right renal stone was localized. Shocks were delivered at kV of 6. Total of 3000 shocks completely fragmented the stone. The patient received 30 mg of Toradol and 40 mg of Lasix at the end of the procedure. She tolerated the procedure and anesthesia well and was sent to recovery room in stable condition. Job ID: [id number] DocumentID: [id number] Dictated Date: 10/11/2020 08:29:18 [employer] Packer Date: 10/11/2020 12:39:11 Dictated By: HELIO REBOLLAR MD
--- NOTE | 2020-10-11 14:02 | Anesthesia-General Post-Op ---
General Patient Condition Mental Status/LOC: Same as Preop Cardiovascular: Satisfactory Nausea/Vomiting: Absent Respiratory: Satisfactory Pain: Controlled Complications: Absent Post Op Complications Complications None Follow Up Care/Instructions Patient Instructions None needed. Anesthesia/Patient Condition Patient Condition Patient is doing well, no complaints, stable vital signs, no apparent adverse anesthesia problems. No complications reported per nursing. D/C home per [facility] Criteria: Yes TOMMY MAHAJAN CRNA Oct 11, 2020 14:02
== END 2020-10-11 10:20 | disposition home or self-care (01) ==
LOC: SDC 06:00
PROVIDERS: ATTEND Urology
DX: N20.0 Calculus of kidney (principal); G43.909 Migraine, unspecified, not intractable, without status migrainosus; E03.9 Hypothyroidism, unspecified; Z79.899 Other long term (current) drug therapy; Z79.890 Hormone replacement therapy
CPT/HCPCS: 74018; 84703; 87081

== ENCOUNTER → 2020-10-18 | Outpatient (CLI) | payer OTHER ==
[~2020-10-18] MED LIST changes: +CETI10TA17 PO; +FAMO20TA3 PO
--- NOTE | 2020-10-18 15:34 | Diagnostic Imaging Report ---
INDICATION: Right ureteral stone. TIME OF EXAM: 3:04 PM. COMPARISON: Correlation is made with the prior radiograph from 10/11/2020. FINDINGS: The right-sided nephroureteral stent remains in place. Calculi overlie the lower pole of the right kidney. No definite calculus along the course of the ureteral stent is identified. The bowel gas pattern is unremarkable. IMPRESSION: Stable KUB since the examination of one week earlier. Dictated by: Dictated on workstation # [id number]
== END ==
LOC: RAD 14:28
PROVIDERS: ATTEND Urology
DX: N20.1 Calculus of ureter (principal)
CPT/HCPCS: 74018

== ENCOUNTER → 2021-04-12 | Outpatient (CLI) | payer OTHER ==
--- NOTE | 2021-04-12 12:44 | Diagnostic Imaging Report ---
Indication: Routine screening. Comparison is made with prior mammogram from 03/29/2020. 2-D and 3-D bilateral screening mammography was performed with CAD. Scattered fibroglandular densities are identified bilaterally. The parenchymal pattern is stable. No mass or malignant-appearing microcalcifications are seen. Axillae are unremarkable. IMPRESSION: BI-RADS Category 1 No mammographic features suspicious for malignancy are identified. ACR BI-RADS Category 1: Negative. Result letter will be mailed to the patient. Note: At least 10% of breast cancer is not imaged by mammography. Dictated by: Dictated on workstation # [id number]
== END ==
LOC: RAD 10:13
PROVIDERS: ATTEND Obstetrics & Gynecology
DX: Z12.31 Encounter for screening mammogram for malignant neoplasm of breast (principal)
CPT/HCPCS: 77063; 77067

== ENCOUNTER → 2022-06-06 | Outpatient (CLI) | payer OTHER ==
--- NOTE | 2022-06-06 17:35 | Diagnostic Imaging Report ---
INDICATION: Routine screening. COMPARISON: Prior mammogram from 04/12/2021 and 03/29/2020. EXAMINATION: 2D and 3D bilateral screening mammography was performed with CAD. The current study was also evaluated with a Computer Aided Detection (CAD) system. FINDINGS: Scattered fibroglandular densities are identified, bilaterally. The parenchymal pattern is stable. No mass or malignant-appearing microcalcifications are seen. Axillae are unremarkable. IMPRESSION: No mammographic features suspicious for malignancy are identified. ACR BI-RADS Category 1: Negative. Result letter will be mailed to the patient. Note: At least 10% of breast cancer is not imaged by mammography. Dictated by: Dictated on workstation # [id number]
== END ==
LOC: RAD 14:22
PROVIDERS: ATTEND Nurse Practitioner Women's Health
DX: Z12.31 Encounter for screening mammogram for malignant neoplasm of breast (principal)
CPT/HCPCS: 77063; 77067